=== PATIENT | male | born 2000 | race African-American/Black ===

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

== ENCOUNTER 2021-04-03 19:27 | Emergency (ER) | payer OTHER ==
[~2021-04-03] VITALS: Ht 172.7 cm; Wt 68.1 kg
--- NOTE | 2021-04-03 20:26 | PHYS DOC ---
Past Medical History Past Medical History: Asthma (AGATHA BERMEO Mariah COOK'S ASSISTANT) Past Surgical History: No Surgical History (AGATHA BERMEO COOK'S ASSISTANT) Smoking Status: Never Smoker Alcohol Use: None Drug Use: None (AGATHA BERMEO COOK'S ASSISTANT) General Adult HPI: HPI: Patient is a 20 year old male who presents to the ED today complaining of a cough for 3 days. Patient denies any fever, shortness of breath nasal or congestion. (AGATHA BERMEO COOK'S ASSISTANT) Review of Systems: Review of Systems: Constitutional: Denies fever or chills. [] Eyes: Denies change in visual acuity. [] HENT: Denies nasal congestion or sore throat. [] Respiratory: Reports cough, denies shortness of breath. [] Cardiovascular: Denies chest pain or edema. [] GI: Denies abdominal pain, nausea, vomiting, bloody stools or diarrhea. [] : Denies dysuria. [] Musculoskeletal: Denies back pain or joint pain. [] Integument: Denies rash. [] Neurologic: Denies headache, focal weakness or sensory changes. [] Psychiatric: Denies depression or anxiety. [] (AGATHA BERMEO Mariah COOK'S ASSISTANT) Heart Score: C/O Chest Pain: N/A Risk Factors: Risk Factors: DM, Current or recent (<one month) smoker, HTN, HLP, family history of CAD, obesity. Risk Scores: Score 0 - 3: 2.5% MACE over next 6 weeks - Discharge Home Score 4 - 6: 20.3% MACE over next 6 weeks - Admit for Clinical Observation Score 7 - 10: 72.7% MACE over next 6 weeks - Early Invasive Strategies (AGATHA BERMEO Mariah COOK'S ASSISTANT) Allergies: Allergies: Allergies Coded Allergies Type Severity Reaction Last Updated Verified No Known Drug Allergies 07/22/16 No (AGATHA BERMEO Mariah COOK'S ASSISTANT) Physical Exam: PE: Constitutional: Well developed, well nourished, no acute distress, non-toxic appearance. [] HENT: Normocephalic, atraumatic, bilateral external ears normal, oropharynx moist, no oral exudates, nose normal. [] Eyes: PERRLA, EOMI, conjunctiva normal, no discharge. [] Neck: Normal range of motion, no tenderness, supple, no stridor. [] Cardiovascular:Heart rate regular rhythm, no murmur [] Lungs & Thorax: Bilateral breath sounds clear to auscultation [] Abdomen: Bowel sounds normal, soft, no tenderness, no masses, no pulsatile masses. [] Skin: Warm, dry, no erythema, no rash. [] Back: No tenderness, no CVA tenderness. [] Extremities: No tenderness, no cyanosis, no clubbing, ROM intact, no edema. [] Neurologic: Alert and oriented X 3, normal motor function, normal sensory function, no focal deficits noted. [] Psychologic: Affect normal, judgement normal, mood normal. [] (AGATHA BERMEO APRN) EKG: EKG: [] (AGATHA BERMEO APRN) Radiology/Procedures: Radiology/Procedures: [] (AGATHA BERMEO APRN) Course & Med Decision Making: Course & Med Decision Making Pertinent Labs and Imaging studies reviewed. (See chart for details) This is a 20-year-old male patient presented to the ED today with a cough for 3 days. Negative rapid Covid test, chest x-ray interpreted by is negative for any acute findings. Discharged home. Provided return precautions. (AGATHA BERMEO COOK'S ASSISTANT) Course & Med Decision Making I was the Attending physician on the above date of service of this patient. This patient was evaluated, examined, treated, and dispositioned from the emergency department by the mid-level practitioner. Although I was working at the time , no assistance was requested. Electronically signed, Jason Jimenez DO (JASON JIMENEZ DO) Erik Disclaimer: Erik Disclaimer: This electronic medical record was generated, in whole or in part, using a voice recognition dictation system. (AGATHA BERMEO COOK'S ASSISTANT) Departure Departure Impression: Primary Impression: Cough Additional Impression: Person under investigation for COVID-19 Disposition: HOME / SELF CARE / HOMELESS Condition: STABLE Referrals: NO PCP (PCP) follow up with your doctor in one week Patient Instructions: Cough, Adult, [id number] Additional Instructions: You were evaluated in the emergency room for a cough. Your chest x-ray is negative for any acute findings, your rapid Covid test is negative for any acute findings. Your PCR Covid test is pending. Please quarantine yourself until you get results from us. Take the prescribed medication as ordered. Scripts Triprolidine/Dm/Acetaminophen (Delsym Nighttime Cough Liquid) 180 Ml Liquid 5 ML PO Q6HRS, #180 LIQUID Prov: AGATHA BERMEO APRN 04/03/21 Benzonatate (TESSALON PERLE) 100 Mg Capsule 1 CAP PO TID, #30 CAP Prov: AGATHA BERMEO APRN 04/03/21 AGATHA BERMEO APRN Apr 03, 2021 20:26 JASON JIMENEZ DO Apr 04, 2021 01:40
[2021-04-03 21:00] VITALS: BP 117/68
[2021-04-03] MEDS ORDERED: BENZ100C PO (21:20)
[2021-04-03] MEDS ORDERED: [UNRECOGNIZED DRUG - CODE] PO (21:20)
--- NOTE | 2021-04-03 23:42 | RAD ---
INDICATION: Reason: cough / Spl. Instructions: / History: COMPARISON: None. FINDINGS: Single view of chest obtained. Cardiac silhouette is unremarkable. There is some suspected calcified granulomas. Patchy opacities within the left lung IMPRESSION: * Patchy opacity within the left lung which could be secondary to pneumonia. Electronically signed by: John Garcia MD (04/03/2021 11:40 PM) [id number]
--- NOTE | 2021-04-05 18:51 | NUR ---
IP: Attempted to contact pt concerning covid results. Phone number provided is his Father. Father will have pt call me.
== END 2021-04-03 21:28 | disposition home or self-care (01) ==
LOC: ER 19:27
DX: R05.9 Cough, unspecified (principal); Z20.822 Contact with and (suspected) exposure to COVID-19; J45.909 Unspecified asthma, uncomplicated
CPT/HCPCS: 71045; 87426; 99284; U0003; U0005